=== PATIENT | male | born 1990 ===

== ENCOUNTER 2022-07-09 22:09 | Emergency (ER) | payer SELFPAY ==
--- OUTSIDE RECORDS SUMMARY | 2022-07-09 22:13 | XMS REPORT | Continuity of Care Document ---
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 09-14 [facility] aneurysm aneurysm 00:00: 00 DYSHASIA DYSHASIA Diagnosis Active 2017-08-06 Memoria Active 08-02 12:56:00 l 08/02/2016 00:00: Scott garcia [address] Anxiety Anxiety Problem Resolve 2016-08-16 M emoria (finding) (finding) d 01:10:18 l Resolved Miguel Problem 08/16/2016 [facility] Depressive Depressiv Problem Resolve 2016-08-16 Memoria disorder e disorder d 01:10:18 l (disorder) (disorder) Lowell olivo Resolved Problem 08/16/2016 [facility] ILLNESS, ILLNESS, Diagnosis Active 2017-08-06 Memoria UNSPECIFIE UNSPECIFIE 12:56:00 l D D Active [facility] Allergies, Adverse Reactions, Alerts This patient has no known allergies or adverse reactions. Social History Social Habit Start Date Stop Date Quantity Comments Source Tobacco use and 2021-09-18 2021-09-18 Smokeless tobacco [place] Health exposure 00:00:00 00:00:00 non-user Social History 2016-08-03 [facility] 04:59:02 Sex Assigned At [birth year] [place] [facility] 00:00:00 00:00:00 Smoking Status Start Date Stop Date Source Smokes tobacco daily 2021-09-18 00:00:00 [facility] Medications Ordered Filled Start Stop Current Ordering Indication Dosage Frequency Signature Comments Components Source Medication Medication Date Date Medication? Clinician (SIG) Name Name gabapentin Yes [place] (Neurontin) 09-06 Health 100 MG 00:00: capsule 00 aspirin 81 Yes 81 mg = 1 Me moria mg tablet, -04 tab, PO, l enteric 16:22: Daily, # Scott n coated 00 60 tab, 0 Refill(s) pregabalin Yes 50 mg = 1 Me moria 50 mg oral -04 cap, PO, l capsule 16:22: Q8H, # 30 Liz nn 00 cap, 0 Refill(s) Acetaminoph Yes 1 tab, PO, Memoria en 325 MG / -04 Q6H, # 12 l butalbital 16:22: tab, 0 Liz nn 50 MG / 00 Refill(s) Caffeine 40 MG Oral Tablet 24 HR Yes = 1 patch, Memori a Nicotine 08-13 Transderma l 0.583 MG/HR 16:22: l, Daily, H ermann Transdermal 00 # 30 Patch patch, 0 Refill(s) tramadol Yes 50 mg = 1 Thom aislinn hydrochlori -04 tab, PO, l de 50 MG 16:22: Q6H, PRN Liz nn Oral Tablet 00 Pain Score 1-3, # 30 tab, 0 Refill(s) Docusate Yes 2 tab, PO, Mem oria Sodium 50 4-04 Daily, # l MG / 16:22: 14 tab, 0 Miguel sennosides, 00 Refill(s) INTERMEDIATE 8.6 MG Oral Tablet clopidogrel Yes 75 mg = 1 M emoria 75 mg oral 4-04 tab, PO, l tablet 16:22: Daily, # Miguel 00 60 tab, 0 Refill(s) atorvastati Yes 20 mg = 1 M emoria n 20 mg 4-04 tab, PO, l oral tablet 16:22: Bedtime, # Miguel 00 60 tab, 0 Refill(s) tramadol No Notes: Not Mem oria hydrochlori 08-12 to exceed l de 50 MG 16:32: 400mg/day. Her mueller Oral Tablet 00 (Same As: Ultram) ketOROLAC No 4 days Memor ia 30 mg/mL 08-12 l injectable 16:31: MEDICATION H ermann solution 00 WASTE Product Size: 30 mg Product Wasted: ___ mg Iohexol No 85 mL, Memoria 08-12 Route: l 15:26: IVP, Drug [place] Form: SOLN, Dosing Weight 86.136, kg, ONCALL, STAT, Start date: 08/12/16 10:26:00 CDT, Duration: 1 doses or times, Dose = 2.2ml/kg, Max dose = 100ml -- "To be infused by Radiology Staff ONLY" Fioricet No Notes: Memoria 08-11 (acetamino l 21:18: phen-butal Miguel 00 bital-caff eine 325-50-40m g) Do not exceed 4 gm/day of acetaminop hen. (Same as: Esgic, Fioricet) Isolyte S No Notes: Memori a (PH 7.4) 08-11 (Same as: l 1000 mL 21:11: Isolyte S Liz nn 1,000 mL 00 PH 7.4) Lyrica No Notes: Memoria 08-11 Same as l 21:00: Lyrica [place] 00 Acetaminoph No Notes: Do M emoria en 300 MG / 08-11 not exceed l Codeine 21:00: 4gm/day of Herm tiffanie Phosphate 00 acetaminop 30 MG Oral hen. (Same Tablet as: [Tylenol Tylenol with with Codeine #3] Codeine # 3) Isolyte S No Notes: Memori a PH-7.4 08-11 (Same as: l (Bolus) IV 14:29: Isolyte S He rmann 00 PH7.4) Fioricet No Notes: Memoria 08-10 (acetamino l 18:44: phen-butal Miguel 00 bital-caff eine 325-50-40m g) Do not exceed 4 gm/day of acetaminop hen. (Same as: Esgic, Fioricet) Lovenox No Notes: Memoria 3-30 (Same as: l 23:00: Lovenox) Miguel 00 Doc-Q-Lax No Notes: Memori a 3-30 (Same as l 14:00: Senokot-S) [place] 00 Equiv. to Eveline-Colac e. potassium No Notes: Memori a phosphate + 3-30 (Same as: l sodium 12:10: K Miguel chloride 00 Phosphate. 0.9% INJ ) 1 mMol 250 mL phoshate has 1.47 mEq potassium Infuse over 4 hours potassium No Notes: Memori a phosphate-s 3-30 (Same as: l odium 12:10: Phos-NaK) Miguel phosphate 00 Each 1.5 250 mg-280 gm pkt has mg-160 mg 250mg oral powder phosphorou for s. Mix reconstitut w/2.5oz ion water and stir. sodium No 15 mmol, 5 Memor ia phosphate + 3-30 mL, Route: l sodium 12:10: IVPB, PRN, Liz nn chloride 00 Dosing 0.9% INJ Weight 250 mL 86.136, kg, PRN Abnormal Lab Result, For NON-ICU Patients Only., Start date: 08/08/16 7:10:00 CDT, Duration: 30 day, Stop date: 09/07/16 7:09:00 CDT potassium No Notes: Memori a chloride 3-30 (Same as: l 12:10: KCL) [place] 00 Infuse over 2 hours. Magnesium No Notes: Memori a Sulfate 3-30 WASTE: F/P l 12:10: - Sink; E Miguel - Municipal Trash Bin Magnesium No Notes: Memori a Oxide 3-30 (Same as: l 12:10: Mag-Ox [place] 00 400) Magnesium oxide 087jb=847p g elemental magnesium Dose=____m g magnesium oxide (___mg elemental magnesium) Calcium No Notes: Memoria Gluconate 3-30 WASTE: F/P l 12:10: - Sink; E Miguel 00 - Municipal Trash Bin Acetaminoph No Notes: Do M emoria en 300 MG / 3-30 not exceed l Codeine 12:10: 4gm/day of Herm tiffanie Phosphate acetaminop 30 MG Oral hen. (Same Tablet as: [Tylenol Tylenol with with Codeine #3] Codeine # 3) atorvastati No Notes: Thom aislinn n 3-30 (Same As: l 02:00: Lipitor) Benadryl No Notes: Memoria 3-30 (Same as: l 01:46: Benadryl) Benadryl No Notes: Memoria 3-30 (Same as: l 01:45: Benadryl) Miguel Sodium No 500 mL, Memoria Chloride 08-08 500 ml/hr, l 0.154 00:03: Infuse Miguel MEQ/ML 00 Over: 1 Injectable hr, Route: Solution IV, 500, Drug form: INJ, ONCE, Priority: STAT, Dosing Weight 86.136 kg, Start date: 08/07/16 19:03:00 CDT, Duration: 1 doses or times, Stop date: 08/07/16 19:03:00 CDT Insulin, No Notes: Memoria Aspart, 08-07 Roll in l Human 23:49: palms of hands gently; Do not shake vigorously . (Same as: NovoLOG) "single patient use only" WASTE: F/P - Black; E - Municipal Trash Bin Stable for 28 days at room temperatur e. Expires in days from ____Date Dextrose No 12.5 gm, Memor ia 50% Syringe 08-07 25 mL, l 23:49: Route: Miguel 00 IVP, Drug Form: INJ, Dosing Weight 86.136, kg, PRN, PRN Blood Glucose Results, Start date: 08/07/16 18:49:00 CDT, Duration: 30 day, Stop date: 09/06/16 18:48:00 CDT Glucagon No 1 mg, Memoria 08-07 Route: IM, l 23:49: Drug form: Miguel 00 PDR/INJ, PRN, Dosing Weight 86.136, kg, PRN Blood Glucose Results, Start date: 08/07/16 18:49:00 CDT, Duration: 30 day, Stop date: 09/06/16 18:48:00 CDT Ofirmev No Notes: Memoria 3-29 Infuse l 23:00: over 15 [place] minutes Do not exceed 4gm/day of acetaminop hen MEDICATION WASTE Product Size: 1000 mg Product Wasted: _0_ mg Blistex Lip No 1 appl, Mem oria Revitalizer 08-07 Route: l 22:00: TOP, TID, Miguel 00 Drug form: STIC, Start date: 08/07/16 17:00:00 CDT, Duration: 30 day, Stop date: 09/06/16 13:00:00 CDT phenol No Notes: Memoria topical 08-07 Chlorasept l 1.4% spray 22:00: ic Waldo Her mueller (Same as: Chlorasept ic, Sore Throat Waldo) WASTE: F/P - Black; E - Municipal Trash Bin Ketorolac No 4 days. Thom aislinn 08-07 l 21:07: [place] 00 Ofirmev No Notes: Memoria 3-29 (Same as: l 21:06: Ofirm) Miguel Zofran No Notes: Memoria 3-29 (Same as: l 21:06: Zofran) Miguel 00 MEDICATION WASTE Product Size: 4 mg Product Wasted: ___ mg Sodium No 500 mL, Memoria Chloride 08-07 500 ml/hr, l 0.154 21:06: Infuse [place] MEQ/ML 00 Over: 1 Injectable hr, Route: Solution IV, 500, Drug form: INJ, ONCE, Priority: STAT, Dosing Weight 86.136 kg, Start date: 08/07/16 16:06:00 CDT, Duration: 1 doses or times, Stop date: 08/07/16 16:06:00 CDT chlorhexidi No 1 appl, Mem oria ne 08-07 Route: l gluconate 14:00: Scott DUNAWAY n 40 MG/ML 00 Q-M-W-F, Medicated Start Liquid Soap date: 08/07/16 9:00:00 CDT, Duration: 30 day, Stop date: 09/04/16 9:00:00 CDT chlorhexidi No 15 ml, Thom aislinn ne 08-07 Route: l gluconate 14:00: S&SPIT, Liz nn 1.2 MG/ML 00 Q12H, Mouthwash Start date: 08/07/16 9:00:00 CDT, Duration: 2 week, Stop date: 08/20/16 21:00:00 CDT aspirin 81 No Notes: Do Me moria mg tablet, 08-07 not crush l enteric 14:00: or chew. Scott n coated 00 (Same As: Ecotrin) clopidogrel No Notes: Thom aislinn 08-07 (Same As: l 14:00: Plavix) Miguel pantoprazol No Notes: Thom aislinn e 08-07 Tablet l 12:30: should not Miguel 00 be chewed or crushed. (Same as: Protonix) Vancomycin No 2000 mg: Me moria 08-07 infuse l 11:00: over 2.5 [place] 00 hours MEDICATION WASTE Product Size: 1000 mg Product Wasted: ___ mg Cefazolin No Notes: Memori a 08-07 Same as: l 10:15: Ancef Miguel 00 Hydromorpho No Notes: Thom aislinn ne 08-07 (Same as: l 07:30: Dilaudid) conc = 0.5 mg/ml Hydromorph one [employer] Dose: ;Delay: ;Basal: Magnesium No Notes: Memori a Oxide 08-07 (Same as: l 07:29: Mag-Ox Miguel 00 400) Magnesium oxide 492vg=056h g elemental magnesium Dose=____m g magnesium oxide (___mg elemental magnesium) Magnesium No Notes: Memori a Sulfate 08-07 WASTE: F/P l 07:29: - Sink; E Miguel 00 - Municipal Trash Bin potassium No Notes: Memori a phosphate-s 08-07 (Same as: l odium 07:29: Phos-NaK) [place] phosphate 00 Each 1.5 250 mg-280 gm pkt has mg-160 mg 250mg oral powder phosphorou for s. Mix reconstitut w/2.5oz ion water and stir. Calcium No Notes: Memoria Carbonate 08-07 (Same As: l 500 MG 07:29: Tums) [place] Chewable 00 Calcium Tablet Carbonate 500 mg = 200 mg elemental calcium Dose = mg calcium carbonate ( mg elemental calcium) Calcium No Notes: Memoria Gluconate 08-07 WASTE: F/P l 07:29: - Sink; E Miguel 00 - Municipal Trash Bin potassium No Notes: Memori a chloride 08-07 (Same as: l 07:29: K-Dur 20) [place] 00 "Do Not Crush" With food and full glass of water sodium No 15 mmol, 5 Memor ia phosphate + - mL, Route: l sodium 07:29: IVPB, PRN, Liz nn chloride 00 Dosing 0.9% INJ Weight 250 mL 86.136, kg, PRN Abnormal Lab Result, Start date: 08/07/16 2:29:00 CDT, Duration: 30 day, Stop date: 09/06/16 2:28:00 CDT, FOR ICU USE ONLY potassium No Notes: Memori a phosphate + 08-07 (Same as: l sodium 07:29: K [place] chloride 00 Phosphate. 0.9% INJ ) 1 mMol 250 mL phoshate has 1.47 mEq potassium Infuse over 4 hours Insulin No Notes: Memoria regular 100 08-07 Final l unit + 07:29: Concentrat Liz nn 00 ion 1unit/1ml WASTE: F/P - Black; E - Municipal Trash Bin Dextrose No 12.5 gm, Memor ia 50% Syringe 08-07 25 mL, l 07:29: Route: Miguel 00 IVP, Drug Form: INJ, Dosing Weight 86.136, kg, PRN, PRN Blood Glucose Results, Start date: 08/07/16 2:29:00 CDT, Duration: 30 day, Stop date: 09/06/16 2:28:00 CDT Naloxone No Notes: Memoria 08-07 Same as l 07:29: Narcan Ondansetron No Notes: Thom aislinn 08-07 (Same as: l 07:29: Zofran) [place] 00 MEDICATION WASTE Product Size: 4 mg Product Wasted: ___ mg Nitroglycer No Notes: Thom aislinn in 08-07 (Same l 07:29: as:Nitroqu ick, Nitrostat) "Do Not Crush" Sublingual tablet Promethazin No Notes: Do M emoria e 08-07 not give l 07:29: IV push. (Same as: Phenergan) Docusate No Notes: Memoria 08-07 (Same as: l 07:29: Colace) (Do Not Crush) Calcium No 1,000 mL, Memor ia Chloride 08-07 Rate: 125 l 0.0014 07:29: ml/hr, MEQ/ML / 00 Infuse Potassium over: 8 Chloride hr, Route: 0.004 IVPB, MEQ/ML / Dosing Sodium Weight Chloride 86.136 kg, 0.103 Total MEQ/ML / Volume: Sodium 1,000, Lactate Start 0.028 date: MEQ/ML 08/07/16 Injectable 2:29:00 Solution CDT, Stop date: 09/06/16 2:28:00 CDT Calcium No Notes: Memoria Gluconate 08-07 WASTE: F/P l 05:10: - Sink; E - [facility] Trash Bin Hydromorpho No Notes: Thom aislinn ne 08-07 (Same as: l 03:30: Dilaudid) conc = 0.5 mg/ml Hydromorph one [employer] Dose: ;Delay: ;Basal: Naloxone No Notes: Memoria 08-07 Same as l 03:10: Narcan protamine No Route: IV, Me moria (ANES) 08-07 Drug form: l 02:00: INJ, ONCE, Stop date: 08/06/16 21:00:00 CDT Isolyte S No Route: IV, Me moria (PH 7.4) 08-06 Total l 1000 mL 23:10: Volume: [place] (ANES) 00 1,000, Start date: 08/06/16 18:10:00 CDT, Stop date: 08/06/16 19:10:00 CDT heparin No Route: IV, Thom aislinn (ANES) 08-06 Drug form: l 23:09: INJ, ONCE, Stop date: 08/06/16 18:09:00 CDT ceFAZolin No Route: IV, Me moria (ANES) 08-06 Drug form: l 21:54: INJ, ONCE, Stop date: 08/06/16 16:54:00 CDT propofol No Route: IV, Mem oria (ANES) 08-06 Drug form: l 21:34: INJ, ONCE, Stop date: 08/06/16 16:34:00 CDT fentaNYL No Route: IV, Mem oria (ANES) 08-06 Drug form: l 21:34: INJ, ONCE, Stop date: 08/06/16 16:34:00 CDT midazolam No Route: IV, Me moria (ANES) 08-06 Drug form: l 21:34: SOLN, ONCE, Stop date: 08/06/16 16:34:00 CDT rocuronium No Route: IV, M emoria (ANES) 08-06 Drug form: l 21:34: INJ, ONCE, Stop date: 08/06/16 16:34:00 CDT sodium No Route: IV, Memor ia chloride 08-06 Total l 0.9% 1000 21:03: Volume: Liz nn ml INJ 00 1,000, (ANES) Start date: 08/06/16 16:03:00 CDT, Stop date: 08/06/16 17:03:00 CDT Folic Acid No Notes: Memor ia 08-06 (Same as: l 14:00: Folvite) Thiamine No Notes: Memoria 08-06 (Same As: l 14:00: Vitamin B1) multivitami No Notes: Thom aislinn n 08-06 (Same l 14:00: as:Thera) WASTE: F/P - Black; E - Municipal Trash Bin Take with food. Calcium No Notes: Memoria Gluconate 08-06 WASTE: F/P l 11:17: - Sink; E [place] - Municipal Trash Bin potassium No Notes: Memori a phosphate + 08-06 (Same as: l sodium 10:39: K Miguel chloride 00 Phosphate. 0.9% INJ ) 1 mMol 250 mL phoshate has 1.47 mEq potassium Infuse over 4 hours sodium No 30 mmol, Memoria phosphate + 08-06 10 mL, l sodium 10:39: Route: [place] chloride 00 IVPB, PRN, 0.9% INJ Dosing 250 mL Weight 86.136, kg, PRN Abnormal Lab Result, Start date: 08/06/16 5:39:00 CDT, Duration: 30 day, Stop date: 09/05/16 5:38:00 CDT, FOR ICU USE ONLY Magnesium No Notes: Memori a Oxide 08-06 (Same as: l 10:39: Mag-Ox Miguel 00 400) Magnesium oxide 449cc=977d g elemental magnesium Dose=____m g magnesium oxide (___mg elemental magnesium) Calcium No Notes: Memoria Gluconate 08-06 WASTE: F/P l 10:39: - Sink; E Miguel 00 - Municipal Trash Bin Calcium No Notes: Memoria Carbonate 08-06 (Same As: l 500 MG 10:39: Tums) Miguel Chewable 00 Calcium Tablet Carbonate 500 mg = 200 mg elemental calcium Dose = mg calcium carbonate ( mg elemental calcium) potassium No Notes: Memori a phosphate-s 08-06 (Same as: l odium 10:39: Phos-NaK) [place] phosphate 00 Each 1.5 250 mg-280 gm pkt has mg-160 mg 250mg oral powder phosphorou for s. Mix reconstitut w/2.5oz ion water and stir. Magnesium No Notes: Memori a Sulfate 08-06 WASTE: F/P l 10:39: - Sink; E Miguel - Municipal Trash Bin potassium No Notes: Memori a chloride 08-06 (Same as: l 10:39: KCL) [place] 00 Infuse no faster than 10 mEq/hr if given peripheral ly. remove No Notes: Memoria patch 08-05 Remove old l 01:00: patch [place] 00 before applicatio n of new patch. WASTE: F/P - P Waste Black; E - P Waste Black Nicoderm No Notes: Memoria C-Q 08-04 (Same as: l 01:00: Habitrol) "Remove old patch before applicatio n of new patch" WASTE: F/P - P Waste Black; E - P Waste Black Iohexol No 70 mL, Memoria 3-25 Route: l 15:19: IVP, Drug Form: SOLN, Dosing Weight 86.136, kg, ONCALL, STAT, Start date: 08/03/16 10:19:00 CDT, Duration: 1 doses or times, Dose = 2.2ml/kg, Max dose = 100ml -- "To be infused by Radiology Staff ONLY" Sodium No 1,000 mL, Memori a Chloride 3-25 Rate: 125 l 0.154 05:50: ml/hr, [place] MEQ/ML 00 Infuse Injectable over: 8.1 Solution hr, Route: IVPB, Dosing Weight 86.136 kg, Total Volume: 1,011.2, Start date: 08/03/16 0:50:00 CDT, Duration: 3 day, Stop date: 08/06/16 0:49:00 CDT Sodium No 1,000 mL, Memori a Chloride 3-25 Rate: 100 l 0.154 05:49: ml/hr, Miguel MEQ/ML 00 Infuse Injectable over: 10 Solution hr, Route: IV, Dosing Weight 86.136 kg, Total Volume: 1,000, Start date: 08/03/16 0:49:00 CDT, Duration: 3 day, Stop date: 08/06/16 0:48:00 CDT oral No Notes: Memoria alcohol 3-25 "Call 2 l (Beer/Wine) 05:49: hours Liz before next dose due" Saline No Notes: Memoria Flush 0.9% 3-25 (Same as: l 05:47: BD Miguel 00 Posiflush) Ondansetron No Notes: Thom aislinn 3-25 (Same as: l 05:47: Zofran) [place] 00 MEDICATION WASTE Product Size: 4 mg Product Wasted: ___ mg Vital Signs Vital Name Observation Time Observation Value Comments Source Respitory Rate 2016-08-13 17:00:00 Memori al [place] Systolic (mm Hg) 2016-08-13 17:00:00 Thom rial Miguel Diastolic (mm Hg) 2016-08-13 17:00:00 Mem orial Miguel Systolic (mm Hg) 2016-08-13 16:00:00 Thom rial Miguel Diastolic (mm Hg) 2016-08-13 16:00:00 Mem orial [place] Respitory Rate 2016-08-13 16:00:00 Memori al [place] Respitory Rate 2016-08-13 15:00:00 Memori al Miguel Systolic (mm Hg) 2016-08-13 15:00:00 Thom rial Miguel Diastolic (mm Hg) 2016-08-13 15:00:00 Mem orial Miguel Temperature Oral (F) 2016-08-13 13:02:00 98.5 F Memorial [place] Temperature Oral (F) 2016-08-13 09:38:00 99.3 F Memorial [place] Temperature Oral (F) 2016-08-13 05:00:00 99.5 F [facility] Height 2016-08-03 04:38:00 175.26 cm [facility] Weight 2016-08-03 04:38:00 [facility] BMI Calculated 2016-08-03 04:38:00 Memori al Miguel Procedures This patient has no known procedures. Encounters Start End Encounter Admission Attending Care Care Encounter Source Date/Time Date/Time Type Type Clinicians Facility Department ID 2021-09-18 Outpatient [facility] [id number] OR 14:54:11 KRISTIAN [id number] [facility] 2021-08-27 Outpatient [facility] [id number] OR 10:30:41 KRISTIAN [id number] [facility] 2022-07-01 2022-07-01 Outpatient [facility] [id number] Samy 13:01:11 13:01:11 [id number] F Dave 2021-09-18 2021-09-18 Office Calderon, [facility] [id number] OR 14:45:00 16:06:34 Visit [facility] [id number] [id number] 2016-08-03 2016-08-13 Inpatient Tevin [facility] [id number] Memoria 04:19:00 19:00:00 haritha Rivera [address] [place] [address] 2016-08-02 2016-08-13 Outpatient Calderon, [facility] [id number] 270 23:19:00 14:00:[address] Results Test Description Test Time Test Comments Results Result Comments Source CHEM PANEL 2016-08-13 10:57:00 Test Item Value Reference Range Interpretation Comme nts Phosphorus (test code = Phosphorus) 3.7 2.5-4.5 [id number] 10:57:00 Test Item Value Reference Range Interpretation Comments Magnesium Lvl (test code = Magnesium 2.3 1.8-2.4 Lvl) [id number] 10:57:00 Test Item Value Reference Range Interpretation Comments Chloride Lvl (test code = Chloride Lvl) 104 95-109 [facility] HospitalWvwgxhxAWVCRWDXQBDT4988-74-55 10:57:00 Test Item Value Reference Range Interpretation Comments Creatinine Lvl (test code = Creatinine 0.70 0.50-1.40 Lvl) [facility] HospitalLenfvejYLSQDTPUALYK8350-49-17 10:57:00 Test Item Value Reference Range Interpretation Comments Sodium Lvl (test code = Sodium Lvl) 138 135-145 [facility] HospitalLorsklkSPKODWJTULIK3249-75-34 10:57:00 Test Item Value Reference Range Interpretation Comments Potassium Lvl (test code = Potassium 3.6 3.5-5.1 Lvl) [facility] Hos[id number] 10:57:00 Test Item Value Reference Range Interpretation Comments CO2 (test code = CO2) 24 24-32 [facility] Hospi[id number] 10:57:00 Test Item Value Reference Range Interpretation Comments AGAP (test code = AGAP) 13.6 10.0-20.0 [facility] Hosp[id number] 10:57:00 Test Item Value Reference Range Interpretation Comments Calcium Lvl (test code = Calcium Lvl) 8.8 8.5-10.5 [facility] Hospital[id number] 10:57:00 Test Item Value Reference Range Interpretation Comments eGFR (test code = eGFR) 131 [facility] HospitalIvemwsmUSCYOCGNMOUU4605-95-86 10:57:00 Test Item Value Reference Range Interpretation Comments Glucose Lvl (test code = Glucose Lvl) 78 70-99 [facility] HospitalPgfudmjQKDVREZHMHRE5029-87-62 10:57:00 Test Item Value Reference Range Interpretation Comments BUN (test code = BUN) 6 7-22 [id number] 10:57:00 Test Item Value Reference Range Interpretation Comments Basophils (test code = 0.7 See_Comment [Aut omated message] The Basophils) system which ge nerated this result tra nsmitted reference range : <=1.0. The reference r garo was not used to int erpret this result as normal/abnormal . [facility] Hospit[id number] 10:57:00 Test Item Value Reference Range Interpretation Comments Segs (test code = Segs) 64.2 45.0-75.0 [facility] HospitalJ[id number] 10:57:00 Test Item Value Reference Range Interpretation Comments Eosinophils (test code = 2.4 See_Comment [A utomated message] The Eosinophils) system which ge nerated this result tra nsmitted reference range : <=4.0. The reference r garo was not used to int erpret this result as normal/abnormal . [facility] HospitalUxknpleSVEKTJDZCB7085-37-81 10:57:00 Test Item Value Reference Range Interpretation Comments Lymphocytes (test code = Lymphocytes) 20.4 20.0-40.0 [facility] HospitalZgnknksAKXELDQUTB6066-02-69 10:57:00 Test Item Value Reference Range Interpretation Comments Monocytes (test code = Monocytes) 12.3 2.0-12.0 [facility] HospitalOzycjwyAZHOBILSTI4742-18-01 10:57:00 Test Item Value Reference Range Interpretation Comments Segs-Bands # (test code = Segs-Bands #) 3.8 1.5-8.1 [facility] Hospit[id number] 10:57:00 Test Item Value Reference Range Interpretation Comments Eosinophils # (test code 0.1 See_Comment [A utomated message] The = Eosinophils #) system ic h generated this result tra nsmitted reference range : <=0.5. The reference r garo was not used to int erpret this result as normal/abnormal . [facility] Hospit[id number] 10:57:00 Test Item Value Reference Range Interpretation Comments Lymphocytes # (test code = Lymphocytes 1.2 1.0-5.5 #) [facility] Hospit[id number] 10:57:00 Test Item Value Reference Range Interpretation Comments Monocytes # (test code 0.7 See_Comment [Aut omated message] The = Monocytes #) system which generated this result tra nsmitted reference range : <=0.8. The reference r garo was not used to int erpret this result as normal/abnormal . [facility] HospitalHpdneamTJQCMTQPGI3058-01-16 10:57:00 Test Item Value Reference Range Interpretation Comments WBC (test code = WBC) 5.9 3.7-10.4 [facility] HospitalKezyruiTGLGVMIFIZ6822-72-90 10:57:00 Test Item Value Reference Range Interpretation Comments MCH (test code = MCH) 31.3 pg 27.0-31.0 [facility] HospitalYlgvkkxGBNSVJYVFI1379-16-06 10:57:00 Test Item Value Reference Range Interpretation Comments MCHC (test code = MCHC) 35.7 32.0-36.0 [facility] HospitalKiwuoohRKIEZDTRRS7526-99-15 10:57:00 Test Item Value Reference Range Interpretation Comments RDW (test code = RDW) 12.8 11.5-14.5 [facility] HospitalFozipdjSDHIEHPSPX8843-29-17 10:57:00 Test Item Value Reference Range Interpretation Comments Platelet (test code = Platelet) 273 133-450 [facility] HospitalNxnvkdtQDCPNSBBBA6977-17-50 10:57:00 Test Item Value Reference Range Interpretation Comments MPV (test code = MPV) 7.7 7.4-10.4 [facility]OutjaozGFBJDOGCZH2054-32-52 10:57:00 Test Item Value Reference Range Interpretation Comments MCV (test code = MCV) 87.9 80.0-94.0 [facility] HospitalUmqqdfgZOBMTDXJQI5143-52-43 10:57:00 Test Item Value Reference Range Interpretation Comments RBC (test code = RBC) 3.93 4.70-6.10 [facility] HospitalZpsgkjgNEHKGSWIZI3925-13-48 10:57:00 Test Item Value Reference Range Interpretation Comments Hgb (test code = Hgb) 12.3 14.0-18.0 [facility] HospitalKqukzgaUWAWGYZASR3545-55-24 10:57:00 Test Item Value Reference Range Interpretation Comments Hct (test code = Hct) 34.5 42.0-54.0 [facility] HospitalannPARATHYROID [id number] 10:57:00 Test Item Value Reference Range Interpretation Comments Ca Ion WB (test code = Ca Ion WB) 1.09 1.05-1.25 [facility] HospitalannPARATHYROID [id number] 10:57:00 Test Item Value Reference Range Interpretation Comments Ca Norm WB (test code = Ca Norm WB) 1.07 1.05-1.25 [facility] HospitalAirbriteCARDIAC [id number] 13:09:00 Test Item Value Reference Range Interpretation Comments Troponin-T (test code no gt See_Comment [Auto mated message] The = Troponin-T) system which g enerated this result transmit rashard reference range : <=0.100. The reference r garo was not used to interpr et this result as melany l/abnormal. [facility] [employer] [id number] 13:09:00 Test Item Value Reference Range Interpretation Comments Troponin-I (test code no gt See_Comment [Auto mated message] The = Troponin-I) system which g enerated this result transmit rashard reference range : <=0.40. The reference r garo was not used to interpr et this result as melany l/abnormal. [employer] [id number] 11:23:00 Test Item Value Reference Range Interpretation Comments Antibody Scrn (test Negative (08/12/16 6:23 code = Antibody Scrn) AM) [facility] [employer] [id number] 11:23:00 Test Item Value Reference Range Interpretation Comments ABO/Rh (test code = ABO/Rh) O POS [facility] [employer]CHEM [id number] 11:23:00 Test Item Value Reference Range Interpretation Comments Phosphorus (test code = Phosphorus) 3.1 2.5-4.5 [facility] [employer]CHEM [id number] 11:23:00 Test Item Value Reference Range Interpretation Comments Magnesium Lvl (test code = Magnesium 2.2 1.8-2.4 Lvl) [facility] HospitalAiciutjMECYUHIRYZHR0080-34-81 11:23:00 Test Item Value Reference Range Interpretation Comments AGAP (test code = AGAP) 13.4 10.0-20.0 [facility] HospitalLkapaqmVEPTNFTAKOMC8179-67-28 11:23:00 Test Item Value Reference Range Interpretation Comments eGFR (test code = eGFR) 132 [facility] HospitalXgcdwqmCSTCLJDGTNTF5083-89-14 11:23:00 Test Item Value Reference Range Interpretation Comments Calcium Lvl (test code = Calcium Lvl) 8.7 8.5-10.5 [facility] HospitalRkpqdjsWYOJGFYZCFEF6622-28-96 11:23:00 Test Item Value Reference Range Interpretation Comments CO2 (test code = CO2) 27 24-32 [facility] HospitalCzaawbhHLSRATIFQDFP8940-61-24 11:23:00 Test Item Value Reference Range Interpretation Comments Creatinine Lvl (test code = Creatinine 0.69 0.50-1.40 Lvl) [facility] HospitalZnfazwcRVIJKFTXYBJN6004-93-57 11:23:00 Test Item Value Reference Range Interpretation Comments BUN (test code = BUN) 7 7-22 [facility] HospitalNwskiwbMSBLQWVWSVGQ6763-48-37 11:23:00 Test Item Value Reference Range Interpretation Comments Glucose Lvl (test code = Glucose Lvl) 118 70-99 [facility] HospitalQtelmqoPNIPMYZXJZKZ5980-95-80 11:23:00 Test Item Value Reference Range Interpretation Comments Sodium Lvl (test code = Sodium Lvl) 140 135-145 [facility] HospitalPyglzgzSTPRQTYEXRYV1852-07-09 11:23:00 Test Item Value Reference Range Interpretation Comments Potassium Lvl (test code = Potassium 3.4 3.5-5.1 Lvl) [facility] HospitalJubplhxNMQHXTBVBFJR4113-88-18 11:23:00 Test Item Value Reference Range Interpretation Comments Chloride Lvl (test code = Chloride Lvl) 103 95-109 [facility] HospitalLtrnihtCFWVYCXGLJ0074-48-33 11:23:00 Test Item Value Reference Range Interpretation Comments MPV (test code = MPV) 7.7 7.4-10.4 [facility] HospitalZccreprTZTCAWHRRJ9688-87-57 11:23:00 Test Item Value Reference Range Interpretation Comments Platelet (test code = Platelet) 236 133-450 [facility] HospitalQldzjtqWLTVIWPDBX6103-90-21 11:23:00 Test Item Value Reference Range Interpretation Comments WBC (test code = WBC) 6.8 3.7-10.4 [facility] HospitalQsiqdceSBYSNAUWHQ0691-29-87 11:23:00 Test Item Value Reference Range Interpretation Comments MCH (test code = MCH) 31.3 pg 27.0-31.0 [facility] HospitalPnrelrbGBPMPHYXLO3850-67-32 11:23:00 Test Item Value Reference Range Interpretation Comments RBC (test code = RBC) 3.81 4.70-6.10 [facility] HospitalHodugxvLJEVTLEREL1313-51-38 11:23:00 Test Item Value Reference Range Interpretation Comments MCV (test code = MCV) 87.4 80.0-94.0 [facility] HospitalOsnhkwjDQSAYWEFKB4283-40-92 11:23:00 Test Item Value Reference Range Interpretation Comments MCHC (test code = MCHC) 35.9 32.0-36.0 [facility] HospitalZgvmwpxDEGBMRGOTO4849-50-64 11:23:00 Test Item Value Reference Range Interpretation Comments Hgb (test code = Hgb) 11.9 14.0-18.0 [facility] HospitalMqucvryXPDOEZOGWU3041-41-87 11:23:00 Test Item Value Reference Range Interpretation Comments Hct (test code = Hct) 33.3 42.0-54.0 [facility] HospitalIvsonowOBAURZGAUW6950-03-80 11:23:00 Test Item Value Reference Range Interpretation Comments RDW (test code = RDW) 12.7 11.5-14.5 [facility] HospitalIbzswihRVRDVKXKLC2332-92-17 11:23:00 Test Item Value Reference Range Interpretation Comments Lymphocytes (test code = Lymphocytes) 13.5 20.0-40.0 [facility] HospitalPdmxcacOGIWBQDOTA1108-62-86 11:23:00 Test Item Value Reference Range Interpretation Comments Segs (test code = Segs) 71.0 45.0-75.0 [facility] HospitalKtczzjhHLGPOSZNTF3905-25-15 11:23:00 Test Item Value Reference Range Interpretation Comments Eosinophils # (test code 0.1 See_Comment [A utomated message] The = Eosinophils #) system whic h generated this result tra nsmitted reference range : <=0.5. The reference r garo was not used to int erpret this result as normal/abnormal . [facility] HospitalEwynbznNJRXIJISBJ3328-63-18 11:23:00 Test Item Value Reference Range Interpretation Comments Eosinophils (test code = 2.0 See_Comment [A utomated message] The Eosinophils) system which ge nerated this result tra nsmitted reference range : <=4.0. The reference r garo was not used to int erpret this result as normal/abnormal . [facility] HospitalAifzkjeBQTCRFJQCL6405-27-69 11:23:00 Test Item Value Reference Range Interpretation Comments Monocytes (test code = Monocytes) 12.9 2.0-12.0 [facility] HospitalBgqsvkiPUQTSZBZDO3650-34-54 11:23:00 Test Item Value Reference Range Interpretation Comments Segs-Bands # (test code = Segs-Bands #) 4.8 1.5-8.1 [facility] HospitalNlbyugvIGFISBUZCQ5340-11-18 11:23:00 Test Item Value Reference Range Interpretation Comments Basophils (test code = 0.6 See_Comment [Aut omated message] The Basophils) system which ge nerated this result tra nsmitted reference range : <=1.0. The reference r garo was not used to int erpret this result as normal/abnormal . [facility] HospitalReoquyeJTXIWEOELS2602-58-43 11:23:00 Test Item Value Reference Range Interpretation Comments Lymphocytes # (test code = Lymphocytes 0.9 1.0-5.5 #) [facility] HospitalTrjkyuyIOFCSZKSRB8351-53-61 11:23:00 Test Item Value Reference Range Interpretation Comments Monocytes # (test code 0.9 See_Comment [Aut omated message] The = Monocytes #) system which generated this result tra nsmitted reference range : <=0.8. The reference r garo was not used to int erpret this result as normal/abnormal . [facility]2017-04-03 11:23:00 Test Item Value Reference Range Interpretation Comments Ca Norm WB (test code = Ca Norm WB) 1.09 1.05-1.25 [facility]2017-04-03 11:23:00 Test Item Value Reference Range Interpretation Comments Ca Ion WB (test code = Ca Ion WB) 1.07 1.05-1.25 [facility] HospitalPptziehJJGLFGWRYZ1548-99-81 09:37:00 Test Item Value Reference Range Interpretation Comments Segs-Bands # (test code = Segs-Bands #) 4.9 1.5-8.1 [facility] HospitalHqooknrKALIUWKIUJ9431-36-29 09:37:00 Test Item Value Reference Range Interpretation Comments Monocytes # (test code 0.8 See_Comment [Aut omated message] The = Monocytes #) system which generated this result tra nsmitted reference range : <=0.8. The reference r garo was not used to int erpret this result as normal/abnormal . [facility] HospitalJkpvzqlAHLQWWBQKN9025-01-79 09:37:00 Test Item Value Reference Range Interpretation Comments Basophils (test code = 0.4 See_Comment [Aut omated message] The Basophils) system which ge nerated this result tra nsmitted reference range : <=1.0. The reference r garo was not used to int erpret this result as normal/abnormal . [facility] HospitalIrfhxvbWXWKQRVTAU2329-96-45 09:37:00 Test Item Value Reference Range Interpretation Comments Lymphocytes (test code = Lymphocytes) 15.0 20.0-40.0 [facility] HospitalWfvhmlxZGEYMJOLGB8354-10-36 09:37:00 Test Item Value Reference Range Interpretation Comments Monocytes (test code = Monocytes) 12.0 2.0-12.0 [facility] HospitalUawlwqdKKRWUJYWSA8461-37-10 09:37:00 Test Item Value Reference Range Interpretation Comments Eosinophils (test code = 0.5 See_Comment [A utomated message] The Eosinophils) system which ge nerated this result tra nsmitted reference range : <=4.0. The reference r garo was not used to int erpret this result as normal/abnormal . [facility] HospitalEkluyloMQUPSASOJE8918-99-76 09:37:00 Test Item Value Reference Range Interpretation Comments Segs (test code = Segs) 72.1 45.0-75.0 [facility] HospitalEgfgmguAFEYPVMZXS5347-64-18 09:37:00 Test Item Value Reference Range Interpretation Comments MPV (test code = MPV) 8.2 7.4-10.4 [facility] HospitalTcdxqcdFOPHMIKZHN0905-60-41 09:37:00 Test Item Value Reference Range Interpretation Comments RDW (test code = RDW) 12.4 11.5-14.5 [facility] HospitalQjvazguNWDDCEZORU5816-08-64 09:37:00 Test Item Value Reference Range Interpretation Comments Platelet (test code = Platelet) 148 133-450 [facility] HospitalKrmbsdjQPKDRBRRJK4408-60-69 09:37:00 Test Item Value Reference Range Interpretation Comments MCHC (test code = MCHC) 35.7 32.0-36.0 [facility] HospitalDkcynjjEICXUIPCPR2034-08-28 09:37:00 Test Item Value Reference Range Interpretation Comments MCV (test code = MCV) 88.3 80.0-94.0 [facility] HospitalYfmwryoTWUSYWFRXK6335-30-44 09:37:00 Test Item Value Reference Range Interpretation Comments MCH (test code = MCH) 31.6 pg 27.0-31.0 [facility] HospitalFszdsttNQVZDYXAJO2342-53-33 09:37:00 Test Item Value Reference Range Interpretation Comments Hct (test code = Hct) 29.7 42.0-54.0 [facility] HospitalBpdjyfoNFYIVLGSUT3237-84-86 09:37:00 Test Item Value Reference Range Interpretation Comments WBC (test code = WBC) 6.7 3.7-10.4 [facility] HospitalSizzwooKGHHHSUCXZ1993-91-36 09:37:00 Test Item Value Reference Range Interpretation Comments RBC (test code = RBC) 3.36 4.70-6.10 [facility] HospitalWhtlrnqICVNEWPHGQ6991-89-84 09:37:00 Test Item Value Reference Range Interpretation Comments Hgb (test code = Hgb) 10.6 14.0-18.0 [facility]2017-04-01 09:37:00 Test Item Value Reference Range Interpretation Comments Magnesium Lvl (test code = Magnesium 2.0 1.8-2.4 Lvl) [facility]2017-04-01 09:37:00 Test Item Value Reference Range Interpretation Comments eGFR (test code = eGFR) 149 [facility]2017-04-01 09:37:00 Test Item Value Reference Range Interpretation Comments Glucose Lvl (test code = Glucose Lvl) 90 70-99 [facility]2017-04-01 09:37:00 Test Item Value Reference Range Interpretation Comments Sodium Lvl (test code = Sodium Lvl) 141 135-145 [facility]2017-04-01 09:37:00 Test Item Value Reference Range Interpretation Comments BUN (test code = BUN) 5 7-22 [facility]2017-04-01 09:37:00 Test Item Value Reference Range Interpretation Comments Creatinine Lvl (test code = Creatinine 0.52 0.50-1.40 Lvl) [facility]2017-04-01 09:37:00 Test Item Value Reference Range Interpretation Comments Potassium Lvl (test code = Potassium 3.8 3.5-5.1 Lvl) [facility] [id number] 09:37:00 Test Item Value Reference Range Interpretation Comments Chloride Lvl (test code = Chloride Lvl) 108 95-109 [facility] CenterDecisyon HCHNP3066-52-16 09:37:00 Test Item Value Reference Range Interpretation Comments Calcium Lvl (test code = Calcium Lvl) 8.2 8.5-10.5 [facility] HospitalQuisic [id number] 09:37:00 Test Item Value Reference Range Interpretation Comments CO2 (test code = CO2) 24 24-32 [facility] HospitalQu[facility] [id number] 09:37:00 Test Item Value Reference Range Interpretation Comments AGAP (test code = AGAP) 12.8 10.0-20.0 [facility] HospitalPobvxuwFUMIQHAXSH2032-47-19 09:37:00 Test Item Value Reference Range Interpretation Comments Lymphocytes # (test code = Lymphocytes 1.0 1.0-5.5 #) [facility] HospitalZon[facility] Medical Systems CWNJCVW3644-71-88 08:45:00 Test Item Value Reference Range Interpretation Comments ABO/Rh (test code = ABO/Rh) O POS [facility] [employer] [facility] [id number] 08:45:00 Test Item Value Reference Range Interpretation Comments Antibody Scrn (test Negative (08/09/16 3:45 code = Antibody Scrn) AM) [facility] HospitalQuisic [id number] 08:40:00 Test Item Value Reference Range Interpretation Comments Phosphorus (test code = Phosphorus) 2.3 2.5-4.5 [facility] CenterQymqbbmHQVLQVAROZ3180-51-37 09:54:00 Test Item Value Reference Range Interpretation Comments PT (test code = PT) 15.7 s 12.0-14.7 [facility] CenterBdfumapELKMYTHHBI9834-93-12 09:54:00 Test Item Value Reference Range Interpretation Comments INR (test code = INR) 1.22 0.85-1.17 [facility] CenterYhlmbfbJGYFRFPELY3160-35-28 09:54:00 Test Item Value Reference Range Interpretation Comments PTT (test code = PTT) 30.4 s 22.9-35.8 [facility] CenterPARATHYROID ZGJMPPD9790-81-02 09:54:00 Test Item Value Reference Range Interpretation Comments Ca Ion WB (test code = Ca Ion WB) 1.10 1.05-1.25 [facility] CenterPARATHYROID WNHMDJH6799-23-58 09:54:00 Test Item Value Reference Range Interpretation Comments Ca Norm WB (test code = Ca Norm WB) 1.08 1.05-1.25 [facility] HospitalHcpkylpTSBQRLEKMU8173-23-59 09:07:00 Test Item Value Reference Range Interpretation Comments PT (test code = PT) 14.4 s 12.0-14.7 [facility] HospitalKmzitbyIGNCAKHUZH0988-69-07 09:07:00 Test Item Value Reference Range Interpretation Comments PTT (test code = PTT) 27.4 s 22.9-35.8 [facility] HospitalFpfbuvrLCAGOOHAZM5966-30-50 09:07:00 Test Item Value Reference Range Interpretation Comments INR (test code = INR) 1.10 0.85-1.17 [facility] [id number] 03:00:00 Test Item Value Reference Range Interpretation Comments Lactic Acid Lvl (test code = Lactic 1.7 0.5-2.2 Acid Lvl) [facility] HospitalHmbogyySXCKNILVXZ7623-65-38 03:00:00 Test Item Value Reference Range Interpretation Comments PTT (test code = PTT) 25.1 s 22.9-35.8 [facility] HospitalScizmxlVDMBHZRNIS7053-91-76 03:00:00 Test Item Value Reference Range Interpretation Comments PT (test code = PT) 16.7 s 12.0-14.7 [facility] HospitalNqxtecnXGJITFNNJZ6520-61-28 03:00:00 Test Item Value Reference Range Interpretation Comments INR (test code = INR) 1.33 0.85-1.17 [facility] HospitalIiaoqytDZSLYXTZCO5805-73-89 03:00:00 Test Item Value Reference Range Interpretation Comments RBC Morph (test code = Normal (08/06/16 10:00 RBC Morph) PM) [facility] HospitalJouqfqkTPCRSHMWAX2535-38-19 03:00:00 Test Item Value Reference Range Interpretation Comments Plt Morph (test code = Normal (08/06/16 10:00 Plt Morph) PM) [facility] BANK [id number] 20:01:00 Test Item Value Reference Range Interpretation Comments FFP product (test code Product available = FFP product) (08/06/16 3:01 PM) [facility] BANK [id number] 20:00:00 Test Item Value Reference Range Interpretation Comments RBC product (test code Product available = RBC product) (08/06/16 3:00 PM) [facility] HospitalAirbriteDimdim [id number] 08:27:00 Test Item Value Reference Range Interpretation Comments Antibody Scrn (test Negative (08/06/16 3:27 code = Antibody Scrn) AM) [facility] [employer] [id number] 08:27:00 Test Item Value Reference Range Interpretation Comments ABO/Rh (test code = ABO/Rh) O POS [facility]GfbnrdkOTAWWBMMFC4653-59-99 08:27:00 Test Item Value Reference Range Interpretation Comments Eosinophils # (test code 0.1 See_Comment [A utomated message] The = Eosinophils #) system whic h generated this result tra nsmitted reference range : <=0.5. The reference r garo was not used to int erpret this result as normal/abnormal . [facility] [id number] 23:28:00 Test Item Value Reference Range Interpretation Comments FFP product (test code Product available = FFP product) (08/05/16 6:28 PM) [facility] [id number] 23:28:00 Test Item Value Reference Range Interpretation Comments RBC product (test code Product available = RBC product) (08/05/16 6:28 PM) [facility] CenterBACTERIAL - [id number] 05:08:00 Test Item Value Reference Range Interpretation Comments MRSA by PCR (test Negative (08/03/16 12:08 code = MRSA by PCR) AM) [facility] CenterCHEM [id number] 05:08:00 Test Item Value Reference Range Interpretation Comments Lactic Acid Lvl (test code = Lactic 0.5 0.5-2.2 Acid Lvl) [facility] HospitalIdcytyvSQEKBUELSN1987-45-00 05:08:00 Test Item Value Reference Range Interpretation Comments Basophils # (test code 0.1 See_Comment [Aut omated message] The = Basophils #) system which generated this result tra nsmitted reference range : <=0.2. The reference r garo was not used to int erpret this result as normal/abnormal . [facility] NHNLKWNGJ7469-26-31 05:08:00 Test Item Value Reference Range Interpretation Comments Hgb A1C (test code = Hgb A1C) 5.1 [facility]
[2022-07-09] MEDS ORDERED: IBUPROFEN 400 MG TAB ONE (23:42)
[2022-07-10 00:38] LABS: SARS-COV-2 RT PCR POSITIVE (NEGATIVE)
--- NOTE | 2022-07-10 01:07 | ER ---
Nurse's Notes [facility] Name: Miguel Ángel Witt Age: 31 yrs Sex: Male : 1990 Arrival Date: 07/09/2022 Time: 22:14 Bed 18 Private MD: Diagnosis: SARS-associated coronavirus as the cause of diseases classified elsewhere;Streptococcal pharyngitis Presentation: 07/09 23:31 Chief complaint: Patient states: I have had some flu symptoms for a while and haven't kd3 been able to get the fever to stay down. The highest it got was 101.5. Coronavirus screen: Vaccine status: Patient reports being unvaccinated. Ebola Screen: No symptoms or risks identified at this time. 23:31 Method Of Arrival: Ambulatory kd3 23:33 Initial Sepsis Screen: Does the patient meet any 2 criteria? No. Patient's initial kd3 sepsis screen is negative. Does the patient have a suspected source of infection? No. Patient's initial sepsis screen is negative. Risk Assessment: Do you want to hurt yourself or someone else? Patient reports no desire to harm self or others. Onset of symptoms was July 09, 2022. 23:33 Acuity: GUADALUPE 4 kd3 Triage Assessment: 23:33 General: Appears uncomfortable, Behavior is calm, cooperative. Pain: Denies pain. kd3 Historical: - Allergies: 23:33 No Known Allergies; kd3 - Home Meds: 23:33 gabapentin oral [Active]; kd3 - Immunization history:: Adult Immunizations up to date. - Social history:: Smoking status: Patient/guardian denies using tobacco. Screenin/01 00:10 [facility] ED Fall Risk Assessment (Adult) History of falling in the last 3 months, jj7 including since admission No falls in past 3 months (0 pts) Confusion or Disorientation No (0 pts) Intoxicated or Sedated No (0 pts) Impaired Gait No (0 pts) Mobility Assist Device Used No (0 pt) Altered Elimination No (0 pt) Score/Fall Risk Level 0 - 2 = Low Risk. Abuse screen: Denies threats or abuse. Nutritional screening: No deficits noted. Tuberculosis screening: No symptoms or risk factors identified. Assessment: 00:10 General: Appears in no apparent distress. comfortable, Behavior is calm, cooperative, jj7 appropriate for age. Respiratory: Reports cough that is dry. Vital Signs: 07/09 23:31 BP 124 / 94; Pulse 88; Resp 19; Temp 98.8; Pulse Ox 95% on R/A; Weight 90.72 kg; kd3 07/10 00:30 BP 120 / 87; Pulse 91; Resp 18; Pulse Ox 97% ; jj7 01:32 BP 123 / 81; Pulse 81; Resp 18; Pulse Ox 96% ; Pain 0/10; jj7 ED Course: 07/09 22:14 Patient arrived in ED. ag3 22:22 Moises Pike PA is PHCP. cp 22:22 Patrick Chau MD is Attending Physician. cp 23:32 Strep Sent. bc6 23:32 COVID-19/FLU A+B Sent. bc6 23:33 Triage completed. kd3 23:33 Arm band placed on right wrist. kd3 07/10 00:06 Sumit Garcia RN is Primary Nurse. jj7 00:10 Bed in low position. Call light in reach. Adult w/ patient. jj7 01:32 No provider procedures requiring assistance completed. Patient did not have IV access jj7 during this emergency room visit. 01:36 Chest Pa And Lat (2 Views) XRAY In Process Unspecified. EDMS Administered Medications: 07/09 23:39 Drug: Ibuprofen 800 mg Route: PO; kd3 07/10 01:31 Follow up: Response: Temperature is decreased; Pain is decreased jj7 01:30 Drug: Augmentin (Amoxicillin-Clavulanate) 875 mg Route: PO; jj7 01:30 Drug: Tessalon Perle (benzonatate) 200 mg Route: PO; jj7 Medication: 00:10 VIS not applicable for this client. jj7 Outcome: 01:06 Discharge ordered by . cp 01:32 Discharged to home ambulatory, with significant other. jj7 01:32 Condition: good 01:32 Discharge instructions given to patient, family, Instructed on discharge instructions, medication usage, Demonstrated understanding of instructions, medications, Prescriptions given X 3. 01:33 Patient left the ED. jj7 Signatures: Dispatcher [employer] EDCO Moises Pike PA PA cp Gomez, Alice [facility] Mira Schroeder RN RN kd3 Sumit Garcia, RN RN jj7 Lovely Davis bc6
--- NOTE | 2022-07-10 01:07 | EDPHYS ---
Physician Documentation [facility] Name: Miguel Ángel Witt Age: 31 yrs Sex: Male : 1990 Arrival Date: 07/09/2022 Time: 22:14 Bed 18 Private MD: ED Physician Patrick Chau HPI: 07/09 22:55 This 31 yrs old Male presents to ER via Unassigned with complaints of Fever, Weakness. cp 22:55 The patient reports fever, that was measured at 101.5 degrees Fahrenheit. Onset: The cp symptoms/episode began/occurred 3 day(s) ago. 22:55 Associated signs and symptoms: Pertinent positives: cough, sore throat, body aches, cp Pertinent negatives: abdominal pain, chest pain, diarrhea, vomiting. Severity of symptoms: in the emergency department the symptoms are unchanged despite home interventions. Historical: - Allergies: 23:33 No Known Allergies; kd3 - Home Meds: 23:33 gabapentin oral [Active]; kd3 - Immunization history:: Adult Immunizations up to date. - Social history:: Smoking status: Patient/guardian denies using tobacco. ROS: 23:00 Constitutional: Positive for body aches, Negative for fever, poor PO intake. cp 23:00 Eyes: Negative for injury, pain, redness, and discharge. cp 23:00 ENT: Positive for sore throat, Negative for drainage from ear(s), ear pain, difficulty swallowing, difficulty handling secretions. 23:00 Cardiovascular: Negative for chest pain, palpitations. 23:00 Respiratory: Positive for cough, "sounds productive", Negative for wheezing. 23:00 Abdomen/GI: Negative for abdominal pain, vomiting, diarrhea, constipation. 23:00 : Negative for urinary symptoms. 23:00 Skin: Negative for cellulitis, rash. 23:00 Neuro: Positive for headache, Negative for altered mental status. 23:00 All other systems are negative. Exam: 23:05 Constitutional: The patient appears in no acute distress, alert, awake, non-toxic, well cp developed, well nourished. 23:05 Head/Face: Normocephalic, atraumatic. cp 23:05 Eyes: Periorbital structures: appear normal, Conjunctiva: normal, no exudate, no injection, Sclera: no appreciated abnormality, Lids and lashes: appear normal, bilaterally. 23:05 ENT: External ear(s): are unremarkable, Ear canal(s): are normal, clear, TM's: bulging, is not appreciated, bilaterally, dullness, bilaterally, erythema, is not appreciated, bilaterally, Nose: is normal, Mouth: Lips: moist, Oral mucosa: moist, Posterior pharynx: Airway: no evidence of obstruction, patent, Tonsils: with erythema, no enlargement, no exudate, swelling, is not appreciated, erythema, that is moderate, exudate, is not appreciated, Voice: is normal. 23:05 Neck: ROM/movement: is normal, is supple, without pain, no range of motions limitations, no meningismus, no nuchal rigidity. 23:05 Chest/axilla: Inspection: normal. 23:05 Cardiovascular: Rate: normal, Rhythm: regular. 23:05 Respiratory: the patient does not display signs of respiratory distress, Respirations: normal, no use of accessory muscles, no retractions, labored breathing, is not present, Breath sounds: are clear throughout, no decreased breath sounds, no stridor, no wheezing, + upper airway congestion. 23:05 Abdomen/GI: Exam negative for discomfort, distension, guarding, Inspection: abdomen appears normal. 23:05 Back: pain, is absent, ROM is normal. 23:05 Skin: no rash present. Vital Signs: 23:31 BP 124 / 94; Pulse 88; Resp 19; Temp 98.8; Pulse Ox 95% on R/A; Weight 90.72 kg; kd3 07/10 00:30 BP 120 / 87; Pulse 91; Resp 18; Pulse Ox 97% ; jj7 01:32 BP 123 / 81; Pulse 81; Resp 18; Pulse Ox 96% ; Pain 0/10; jj7 MDM: 07/09 23:32 Patient medically screened. cp 07/10 01:05 Data reviewed: vital signs, nurses notes, lab test result(s), radiologic studies, plain cp films. 01:05 Differential diagnosis: viral Infection, bacterial infection, bronchitis, pneumonia cp gastroenteritis, meningitis. Consideration of Admission/Observation Escalation of care including admission/observation considered. I considered the following discharge prescriptions or medication management in the emergency department Medications were administered in the Emergency Department. See MAR. Independent interpretation of the following test(s) in the Emergency Department X-Ray: My interpretation is chest images negative for focal pneumonia. Test considered but Not performed: Labs: cbc, bmp. Counseling: I had a detailed discussion with the patient and/or guardian regarding: the historical points, exam findings, and any diagnostic results supporting the discharge/admit diagnosis, lab results, radiology results, to return to the emergency department if symptoms worsen or persist or if there are any questions or concerns that arise at home. Response to treatment: the patient's symptoms have mildly improved after treatment, and as a result, I will discharge patient. 07/09 22:44 Order name: COVID-19/FLU A+B; Complete Time: 00:51 cp 07/10 00:51 Interpretation: Reviewed. cp 07/09 21:44 Order name: Strep; Complete Time: 00:08 cp 07/10 00:08 Interpretation: Reviewed. cp 07/09 21:44 Order name: Chest Pa And Lat (2 Views) XRAY cp Administered Medications: 07/09 23:39 Drug: Ibuprofen 800 mg Route: PO; kd3 07/10 01:31 Follow up: Response: Temperature is decreased; Pain is decreased jj7 01:30 Drug: Augmentin (Amoxicillin-Clavulanate) 875 mg Route: PO; jj7 01:30 Drug: Tessalon Perle (benzonatate) 200 mg Route: PO; jj7 Disposition: 02:16 Co-signature as Attending Physician, Patrick Chau MD I reviewed the patient's care rt provided by the Advanced Practice Provider and agree with the diagnosis and treatment plan. Disposition Summary: 07/10/22 01:06 Discharge Ordered Location: Home cp Problem: new cp Symptoms: have improved cp Condition: Stable cp Diagnosis - SARS-associated coronavirus as the cause of diseases classified elsewhere cp - Streptococcal pharyngitis cp Followup: cp - With: Private Physician - When: 2 - 3 days - Reason: Worsening of condition Discharge Instructions: - Discharge Summary Sheet cp - Strep Throat, Adult cp - Aspirin and Your Heart cp - Form - Excuse from Work, School, or Physical Activity cp - COVID-19 cp - COVID-19: What Your Test Results Mean - CDC cp - Things to Know about the COVID-19 Pandemic - CDC cp - 10 Things You Can Do to Manage Your COVID-19 Symptoms at Home - CDC cp - COVID-19: Quarantine vs. Isolation - [facility] cp - Prevent the Spread of COVID-19 if You Are Sick - [facility] cp Forms: - Medication Reconciliation Form cp - Thank You Letter cp - Antibiotic Education cp - Prescription Opioid Use cp Prescriptions: - Bromfed DM 2-30-10 mg/5 mL Oral syrup - take 10 milliliter by ORAL route every 6 hours; 180 milliliter; Refills: 0, cp Product Selection Permitted - Paxlovid (EUA) 150 mg x 2- 100 mg Oral tablet - take 3 tablet by ORAL route 2 times per day for 5 days per package directions; cp 30 tablet; Refills: 0, Product Selection Permitted - Augmentin 875-125 mg Oral Tablet - take 1 tablet by ORAL route every 12 hours for 10 days; 20 tablet; Refills: 0, cp Product Selection Permitted - Ibuprofen 800 mg Oral Tablet - take 1 tablet by ORAL route every 8 hours As needed take with food; 30 tablet; cp Refills: 0, Product Selection Permitted Signatures: Dispatcher [employer] EDMoises Sharma PA PA Mira Alaniz RN RN kd3 Sumit Garcia RN RN jj7 Patrick Chau MD MD rt
[2022-07-10] MEDS ORDERED: BENZONATATE 100 MG CAP PO ONE (01:26)
[2022-07-10] MEDS ORDERED: AMOX/K CLAV 875 MG TAB ONE (01:26)
[2022-07-10 01:42] VITALS: TEMP 98.8
[2022-07-10 01:44] VITALS: BP 123/81; O2SAT 96
--- NOTE | 2022-07-10 13:33 | RAD REPORT ---
EXAM DESCRIPTION: RAD - Chest Pa And Lat (2 Views) - 07/09/2022 11:30 pm CLINICAL HISTORY: 31 years Male, COUGH TECHNIQUE: 2 views (Single and lateral views of the chest.) COMPARISON: None. FINDINGS: Surgical clips projecting over bilateral apices. LINES AND TUBES: None. CARDIOVASCULAR STRUCTURES: Upper limits of normal size. Proximal descending thoracic aortic stent. Pulmonary vasculature appears normal. LUNGS: The lungs are clear. PLEURA: No pleural effusions. No pneumothorax. BONES: No acute osseous abnormality of the thorax. IMPRESSION: 1. No acute cardiopulmonary disease. 2. Proximal descending thoracic aortic stent. Electronically signed by: Jonathon Martins MD 07/09/2022 11:50 PM [employer] Due to temporary technical issues with the PACS/Fluency reporting system, reports are being signed by the in house radiologists without review as a courtesy to insure prompt reporting. The interpreting radiologist is fully responsible for the content of the report.
== END 2022-07-10 01:33 | disposition home or self-care (01) ==
LOC: ER 22:09
DX: U07.1 COVID-19 (principal); J02.0 Streptococcal pharyngitis
CPT/HCPCS: 0240U; 71046; 87081